=== PATIENT | female | born 1980 | race Caucasian/White ===

== ENCOUNTER 2018-12-20 15:39 | Emergency (ER) | payer BC ==
[2018-12-20] MEDS ORDERED: Ondansetron 4 MG/2 ML SDV IVPUSH ONE (16:40)
[2018-12-20] MEDS ORDERED: Sodium Chloride 0.9% 10 ML Syringe FLUSH PRN (16:40)
[2018-12-20] MEDS ORDERED: HYDROmorphone 1 MG/ML Syringe IVPUSH ONE ×2 (16:41→17:50)
[2018-12-20] MEDS ORDERED: Ketorolac 30 MG/ML SDV IVPUSH ONE (16:41)
[2018-12-20] MEDS ORDERED: Sodium Chloride 0.9% 1,000 ML IV SCH (16:45)
[2018-12-20] MEDS ORDERED: Promethazine 25 MG Tab PO ONE (17:14)
--- NOTE | 2018-12-20 19:20 | EDM.PDOC ---
ED HPI GENERAL MEDICAL PROBLEM - General Chief Complaint: Abdominal Pain Stated Complaint: LOW ABD PAIN AND LOW BACK PAIN Time Seen by Provider: 12/20/18 16:34 Source of Information: Reports: Patient History Limitations: Reports: No Limitations - History of Present Illness INITIAL COMMENTS - FREE TEXT/NARRATIVE: The patient presents with right flank pain and dysuria. [facility] and told she has a UTI. She was put on cipro for it. She also has nausea and vomiting. She has some lower abdominal pain. She has no fever or chills. She has no chest pain or shortness of breath. She had her uterus and ovaries out. Onset: Gradual Duration: Day(s): Location: Reports: Abdomen, Back Severity: Moderate Improves with: Reports: None Worsens with: Reports: None Associated Symptoms: Reports: Nausea/Vomiting. Denies: Chest Pain, Cough, Fever /Chills, Headaches, Shortness of Breath Bilateral Back Pain Score (Numeric/FACES): 9 - Related Data Allergies Allergy/AdvReac Type Severity Reaction Status Date / Time acetazolamide Allergy Rash Verified 12/20/18 16:09 [From Diamox Sequels] calcium [From DHEA] Allergy Rash Verified 12/20/18 16:09 calcium carbonate [From DHEA] Allergy Rash Verified 12/20/18 16:09 morphine Allergy Hives Verified 12/20/18 16:09 ondansetron [From Zofran] Allergy Nausea and Verified 12/20/18 16:09 Vomiting prasterone (DHEA) [From DHEA] Allergy Rash Verified 12/20/18 16:09 Sulfa (Sulfonamide Allergy Anaphylactic Verified 12/20/18 16:09 Antibiotics) Shock Home Meds: Home Meds Amitriptyline [Elavil] 50 mg PO BEDTIME 12/20/18 [History] Ciprofloxacin HCl [Cipro] 500 mg PO BID 12/20/18 [History] Fluconazole [Diflucan] 150 mg PO ASDIRECTED 12/20/18 [History] Furosemide [Lasix] 40 mg PO BID 12/20/18 [History] Metoprolol Succinate 25 mg PO DAILY 12/20/18 [History] Non-Formulary Medication [NF Drug] 1 each PO DAILY 12/20/18 [History] Promethazine [Phenergan] 25 mg PO Q4HR PRN 12/20/18 [History] Promethazine [Phenergan] 25 mg PO Q6H PRN #20 tab 12/20/18 [Rx] Rosuvastatin [Crestor] 10 mg PO DAILY 12/20/18 [History] Spironolactone [Aldactone] 100 mg PO BID 12/20/18 [History] Temazepam 30 mg PO BEDTIME 12/20/18 [History] oxyCODONE HCl [Oxycodone HCl] 10 mg PO Q4HR PRN 12/20/18 [History] oxyCODONE HCl [Oxycontin] 15 mg PO BID 12/20/18 [History] Past Medical History HEENT History: Reports: Other (See Below) Other HEENT History: ear tubes Cardiovascular History: Reports: Other (See Below) Other Cardiovascular History: tachycardia Gastrointestinal History: Reports: Other (See Below) Other Gastrointestinal History: ulcers Genitourinary History: Reports: Retention, 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: Musculoskeletal History: Reports: Arthritis Neurological History: Reports: Other (See Below) Other Neuro History: shunt 2015 bilateral Endocrine/Metabolic History: Reports: Diabetes, Type II - Infectious Disease History Infectious Disease History: Reports: Chicken Pox, Meningitis - Past Surgical History HEENT Surgical History: Reports: Tonsillectomy GI Surgical History: Reports: Cholecystectomy Social & Family History - Tobacco Use Smoking Status *Q: Never Smoker - Caffeine Use Caffeine Use: Reports: Soda - Recreational Drug Use Recreational Drug Use: No ED ROS GENERAL - Review of Systems Review Of Systems: See Below Constitutional: Reports: No Symptoms HEENT: Reports: No Symptoms Respiratory: Reports: No Symptoms Cardiovascular: Reports: No Symptoms Endocrine: Reports: No Symptoms GI/Abdominal: Reports: Abdominal Pain, Nausea, Vomiting : Reports: Flank Pain (Right) Musculoskeletal: Reports: No Symptoms Skin: Reports: No Symptoms ED EXAM, RENAL/ - Physical Exam Exam: See Below Exam Limited By: No Limitations General Appearance: Alert, No Apparent Distress Ears: Normal External Exam Nose: Normal Inspection Head: Atraumatic, Normocephalic Neck: Normal Inspection Respiratory/Chest: No Respiratory Distress, Lungs Clear, Normal Breath Sounds Cardiovascular: Regular Rate, Rhythm, No Edema, No Murmur GI/Abdominal: Soft, No Organomegaly, No Mass, Tender (Mild lower abdominal pain) Back Exam: CVA Tenderness (R) Extremities: Normal Inspection Neurological: Alert, Oriented, No Motor/Sensory Deficits Course - Vital Signs Last Recorded V/S: Last Vital Signs Temp 98.7 F 12/20/18 15:51 Pulse 111 H 12/20/18 15:51 Resp 18 12/20/18 15:51 BP 131/90 12/20/18 15:51 Pulse Ox 100 12/20/18 15:51 - Orders/Labs/Meds Orders: Active Orders 24 hr Category Date Time Status Peripheral IV Care [RC] . DIRECTED Care 12/20/18 16:41 Active Abdomen Pelvis wo Cont [CT] Stat Exams 12/20/18 16:40 Taken Sodium Chloride 0.9% [Normal Saline] 1,000 ml Med 12/20/18 16:45 Active IV ASDIRECTED Sodium Chloride 0.9% [Saline Flush] Med 12/20/18 16:40 Active 10 ml FLUSH ASDIRECTED PRN ED Antiemetic Medication Reflex [OM.PC] Stat Oth 12/20/18 16:40 Ordered Peripheral IV Insertion Adult [OM.PC] Stat Oth 12/20/18 16:40 Ordered Medication Orders Sodium Chloride (Normal Saline) 1,000 mls @ 125 mls/hr IV ASDIRECTED MICHAEL Last Admin: 12/20/18 17:05 Dose: 125 mls/hr Sodium Chloride (Saline Flush) 10 ml FLUSH ASDIRECTED PRN PRN Reason: Keep Vein Open Last Admin: 12/20/18 17:10 Dose: 10 ml Labs: Laboratory Tests 12/20/18 12/20/18 12/20/18 Range/Units 16:00 17:10 17:10 WBC 9.39 (3.98-10.04) K/mm3 RBC 4.14 (3.98-5.22) M/mm3 Hgb 12.5 (11.2-15.7) gm/L Hct 37.5 (34.1-44.9) % MCV 90.6 (79.4-94.8) fl MCH 30.2 (25.6-32.2) pg MCHC 33.3 (32.2-35.5) g/dl RDW Std Deviation 41.9 (36.4-46.3) fL Plt Count 319 (182-369) K/mm3 MPV 9.0 L (9.4-12.3) fl Neut % (Auto) 59.2 (34.0-71.1) % Lymph % (Auto) 32.9 (19.3-51.7) % Coffey % (Auto) 5.1 (4.7-12.5) % Eos % (Auto) 2.4 (0.7-5.8) Baso % (Auto) 0.2 (0.1-1.2) % Neut # (Auto) 5.55 (1.56-6.13) K/mm3 Lymph # (Auto) 3.09 (1.18-3.74) K/mm3 Coffey # (Auto) 0.48 H (0.24-0.36) K/mm3 Eos # (Auto) 0.23 (0.04-0.36) K/mm3 Baso # (Auto) 0.02 (0.01-0.08) K/mm3 Lipase 79 (73-393) U/L Urine Color Yellow (Yellow) Urine Appearance Clear (Clear) Urine pH 5.5 (5.0-8.0) Ur Specific Petros > or = 1.030 (1.005-1.030) Urine Protein Trace H (Negative) Urine Glucose (UA) Negative (Negative) Urine Ketones Negative (Negative) Urine Occult Blood 3+ H (Negative) Urine Nitrite Negative (Negative) Urine Bilirubin Negative (Negative) Urine Urobilinogen 0.2 (0.2-1.0) Ur Leukocyte Esterase 1+ H (Negative) Urine RBC 20-30 H (0-5) /hpf Urine WBC 10-20 H (0-5) /hpf Ur Squamous Epith Cells 0-5 (0-5) /hpf Urine Bacteria Few (FEW) /hpf Urine Mucus Few (FEW) /hpf Meds: Medications Generic Name Dose Route Start Last Admin Trade Name Freq PRN Reason Stop Dose Admin Sodium Chloride 1,000 mls @ 125 mls/hr 12/20/18 16:45 12/20/18 17:05 Normal Saline IV 125 mls/hr ASDIRECTED MICHAEL Administration Sodium Chloride 10 ml 12/20/18 16:40 12/20/18 17:10 Saline Flush FLUSH 10 ml ASDIRECTED PRN Administration Keep Vein Open Discontinued Medications Generic Name Dose Route Start Last Admin Trade Name Freq PRN Reason Stop Dose Admin Hydromorphone HCl 1 mg 12/20/18 16:41 12/20/18 17:06 Dilaudid IVPUSH 12/20/18 16:42 1 mg ONETIME ONE Administration Hydromorphone HCl 1 mg 12/20/18 17:50 12/20/18 17:56 Dilaudid IVPUSH 12/20/18 17:51 1 mg ONETIME ONE Administration Ketorolac Tromethamine 30 mg 12/20/18 16:41 12/20/18 17:05 Toradol IVPUSH 12/20/18 16:42 30 mg ONETIME ONE Administration Ondansetron HCl 4 mg 12/20/18 16:40 12/20/18 17:12 Zofran IVPUSH 12/20/18 16:41 Not Given ONETIME ONE Promethazine HCl 25 mg 12/20/18 17:14 12/20/18 17:20 Phenergan PO 12/20/18 17:15 25 mg ONETIME ONE Administration - Re-Assessments/Exams Free Text/Narrative Re-Assessment/Exam: 12/20/18 19:19 I ordered an IV NS at 125mL/hr, phenergan 25mg PO, dilaudid, toradol, labs UA and a CT of her abdomen and pelvis without contrast. Her CBC looks good. Her lipase was negative. Her UA shows blood and WBCs and bacteria. Her CT shows no acute process and hepatic steatosis. I will get her some phenergan for at home for the nausea. Departure - Departure Time of Disposition: 19:25 Disposition: Home, Self-Care 01 Condition: Good Clinical Impression: UTI (urinary tract infection) Qualifiers: Urinary tract infection type: site unspecified Hematuria presence: without hematuria Qualified Code(s): N39.0 - Urinary tract infection, site not specified - Discharge Information *PRESCRIPTION DRUG MONITORING PROGRAM REVIEWED*: Not Applicable *COPY OF PRESCRIPTION DRUG MONITORING REPORT IN PATIENT MIMI: Not Applicable Prescriptions: Promethazine [Phenergan] 25 mg PO Q6H PRN #20 tab PRN Reason: Nausea Referrals: Anusha Vega, RETAIL SPECIALIST [Primary Care Provider] - 1 Week Additional Instructions: Drink plenty of fluids. Keep taking the cipro. Take phenergan for nausea and vomiting. Drink plenty of fluids. - My Orders Last 24 Hours: My Active Orders 12/20/18 16:40 Abdomen Pelvis wo Cont [CT] Stat Sodium Chloride 0.9% [Saline Flush] 10 ml FLUSH ASDIRECTED PRN ED Antiemetic Medication Reflex [OM.PC] Stat Peripheral IV Insertion Adult [OM.PC] Stat 12/20/18 16:41 Peripheral IV Care [RC] . DIRECTED 12/20/18 16:45 Sodium Chloride 0.9% [Normal Saline] 1,000 ml IV ASDIRECTED - Assessment/Plan Last 24 Hours: My Active Orders 12/20/18 16:40 Abdomen Pelvis wo Cont [CT] Stat Sodium Chloride 0.9% [Saline Flush] 10 ml FLUSH ASDIRECTED PRN ED Antiemetic Medication Reflex [OM.PC] Stat Peripheral IV Insertion Adult [OM.PC] Stat 12/20/18 16:41 Peripheral IV Care [RC] . DIRECTED 12/20/18 16:45 Sodium Chloride 0.9% [Normal Saline] 1,000 ml IV ASDIRECTED
--- NOTE | 2018-12-23 10:42 | CT ---
CT abdomen and pelvis Technique: Multiple axial sections were obtained from above the kidneys inferiorly through the pubic symphysis. Intravenous and oral contrast not utilized. Study has been performed as a ureteral stone protocol. Findings: Kidneys show no abnormal calcifications. There is atrophy within portions of the left upper kidney. Left kidney is also smaller in size than the right kidney. Left kidney has a length of 7.9 cm and right kidney has a length of 9.5 cm. No ureteral dilatation or ureteral stone is seen. Small portion of the visualized posterior lung bases are clear. Liver shows low density compatible with fatty infiltration. Surgical clips are seen from prior cholecystectomy. Visualized spleen appears unremarkable. Adrenal glands show no nodule. Pancreas shows no discrete abnormality. Aorta shows no aneurysm. No retroperitoneal adenopathy or mesenteric abnormalities are seen. No pelvic mass or adenopathy is seen. Abdominal wall catheter is seen. Bone window settings were reviewed which appear within normal limits for the patient's age. Appendix not definitely visualized. Impression: 1. No renal calculi, ureteral dilatation or ureteral stone is seen. 2. Areas of scarring and atrophy within the left kidney. 3. Fatty infiltration within the liver with prior cholecystectomy. 4. Other incidental findings. Nothing acute is appreciated. Diagnostic code #2 I agree with preliminary report from [facility], finalized on 12/20/18, 7:35 PM Central Time
== END 2018-12-20 19:37 | disposition home or self-care (01) ==
LOC: JD.ED 15:39
DX: N39.0 Urinary tract infection, site not specified (principal); E11.9 Type 2 diabetes mellitus without complications; Z88.8 Allergy status to other drugs, medicaments and biological substances; Z88.5 Allergy status to narcotic agent; Z88.2 Allergy status to sulfonamides; Z79.899 Other long term (current) drug therapy
CPT/HCPCS: 36415; 74176; 81001; 83690; 85025; 96361; 96374; 96375; 96376; 99284; J1170; J1885; J7040; J8597